=== PATIENT | female | born 1945 | race Caucasian/White ===

== ENCOUNTER 2017-05-23 12:17 | Emergency (ER) | payer MEDICARE ==
[~2017-05-23] VITALS: Ht 149.9 cm; Wt 63.5 kg
[2017-05-23 14:32] LABS: BASOPHIL % 0.6 % (0-2); PLATELET COUNT 182 x10^3mcL (130-400); RED CELL DISTRIBUTION WIDTH 14.2 % (11.5-14.5)
[2017-05-23 14:45] LABS: CARBON DIOXIDE 33.5 mmol/L (21-32); CHLORIDE SERUM 102 mmol/L (98-107); GFR1 58 mL/min; GLUCOSE SERUM 105 mg/dL (74-106); POTASSIUM SERUM 4.3 mmol/L (3.5-5.1); SODIUM SERUM 137 mmol/L (136-145)
[2017-05-23 14:54] LABS: ALBUMIN 3.7 g/dL (3.4-5.0); ALKALINE PHOSPHATASE 85 U/L (46-116); ALT/SGPT 27 U/L (14-59); AST/SGOT 21 U/L (15-37); BILIRUBIN TOTAL 0.3 mg/dL (0.20-1.00); CHOLESTEROL 150 mg/dL (<200)
[2017-05-23 17:00] VITALS: BP 150/91
== END 2017-05-23 17:00 | disposition short-term general hospital (02) ==
LOC: ED 12:17
PROVIDERS: Specialist
DX: S82.045A Nondisplaced comminuted fracture of left patella, initial encounter for closed fracture (principal); N39.0 Urinary tract infection, site not specified; R41.82 Altered mental status, unspecified; I10 Essential (primary) hypertension; W01.198A Fall on same level from slipping, tripping and stumbling with subsequent striking against other object, initial encounter; Y93.89 Activity, other specified; Y99.8 Other external cause status; Y92.89 Other specified places as the place of occurrence of the external cause
CPT/HCPCS: 83880; G0480; J0696; Q0092